=== PATIENT | female | born 1965 | race Two or more races ===

== ENCOUNTER 2019-05-03 18:37 | Emergency (ER) | payer BC, OTHER ==
[~2019-05-03] VITALS: Ht 165.1 cm; Wt 76.7 kg
[2019-05-03 19:20] LABS: Basophils # (auto) 0.1 10 ^3/uL (0-0.2); Eosinophils # (auto) 0.3 10 ^3/uL (0-0.8); Eosinophils % (auto) 5.1 % (0.0-7.0); Hemoglobin 13.2 g/dL (12.2-16.2); Lymphocytes # (auto) 2.2 10 ^3/uL (0.4-5.4); Lymphocytes % (auto) 44.1 % (10.0-50.0); Mean Corpuscular Hemoglobin 32.1 pg (28.0-32.0); Mean Corpuscular Hgb Conc. 33.9 g/dL (32.0-36.0); Mean Corpuscular Volume 94.5 fL (80.0-100.0); Monocytes # (auto) 0.5 10 ^3/uL (0-1.3); Monocytes % (auto) 9.2 % (0.0-12.0); Neutrophils % (auto) 40.6 % (37.0-80.0); Nucleated Red Blood Cells % 0.1 %; Platelet Count (auto) 117 10^3/uL (140-450); Red Blood Cells 4.13 10^6/uL (4.0-5.20); Red Cell Distribution Width 13.8 % (11.8-14.3)
[2019-05-03 19:41] LABS: Albumin 3.4 g/dL (3.4-5.0); Anion Gap 5 (5-15); BUN/Creatinine Ratio 17.1; Blood Urea Nitrogen 14 mg/dL (7-18); Calcium 8.4 mg/dL (8.5-10.1); Carbon Dioxide 26 mmol/L (21-32); Chloride 109 mmol/L (98-107); GFR African American 95 mL/min; GFR Non-African American 78 mL/min; Glucose 98 mg/dL (74-106); Magnesium 2.1 mg/dL (1.6-2.6); Potassium 3.9 mmol/L (3.5-5.1); Sodium 140 mmol/L (136-145)
[2019-05-03 19:46] LABS: Alanine Aminotransferase 59 U/L (13-56); Alkaline Phosphatase 88 U/L (45-117); Aspartate Aminotransferase 43 U/L (15-37); Bilirubin, Total 0.2 mg/dL (0.2-1.0)
[2019-05-03 20:06] LABS: Urine Bacteria NONE SEEN /hpf (None Seen); Urine Blood 1+ /uL (Negative); Urine Mucus FEW (None Seen); Urine Specific Gravity 1.026 (1.001-1.035); Urine WBC 64 /hpf (0 - 5)
[2019-05-04] MEDS ORDERED: MORPHINE SULF INJ 2 MG/ML SYRINGE 1ML IV ONE (03:15)
[2019-05-04] MEDS ORDERED: ONDANSETRON HCL 4 MG/2 ML VIAL IV ONE (03:15)
[2019-05-04] MEDS ORDERED: SODIUM CHLORIDE 0.9% 1,000 ML IV ONE (03:15)
[2019-05-04] MEDS ORDERED: IOHEXOL 300 MG/ML 100ML BOTTLE IJ ONE (03:16)
[2019-05-04 05:00] VITALS: BP 126/72
== END 2019-05-04 05:56 | disposition home or self-care (01) ==
LOC: ER 18:37
DX: N39.0 Urinary tract infection, site not specified (principal); R94.5 Abnormal results of liver function studies
CPT/HCPCS: 36415; 74177; 80053; 81001; 83735; 84484; 85025; 93005; 96361; 96374; 96375; 99285; J7030